=== PATIENT | female | born 1995 | race Caucasian/White ===

== ENCOUNTER 2018-08-04 21:03 | Emergency (ER) | payer OTHER | END 2018-08-04 22:42 | disposition home or self-care (01) | LOC: M ED 21:03 | DX: J06.9 Acute upper respiratory infection, unspecified (principal); Z88.6 Allergy status to analgesic agent; Z88.2 Allergy status to sulfonamides; Z91.018 Allergy to other foods | CPT/HCPCS: 87880 ==

== ENCOUNTER 2018-09-11 13:48 | Emergency (ER) | payer MEDICAID, SELFPAY, OTHER | END 2018-09-11 17:35 | disposition home or self-care (01) | LOC: M ED 13:48 | DX: J06.9 Acute upper respiratory infection, unspecified (principal); R07.9 Chest pain, unspecified; Z88.2 Allergy status to sulfonamides; Z91.018 Allergy to other foods; Z88.6 Allergy status to analgesic agent | CPT/HCPCS: 71046 ==

== ENCOUNTER 2020-10-29 18:20 | Emergency (ER) | payer MEDICAID ==
[~2020-10-29] VITALS: Ht 162.6 cm; Wt 54.5 kg
[~2020-10-29 18:20] MED LIST: MAGICMW SS; TESS100C PO; ZITHTAB PO
[2020-10-29 18:22] VITALS: BP 147/89
== END 2020-10-29 18:32 | disposition left against medical advice (07) ==
LOC: M ED 18:20
DX: Z53.29 Procedure and treatment not carried out because of patient's decision for other reasons (principal)

== ENCOUNTER 2021-08-29 03:23 | Emergency (ER) | payer MEDICAID, SELFPAY ==
[~2021-08-29] VITALS: Ht 157.5 cm; Wt 58.2 kg
--- OUTSIDE RECORDS SUMMARY | 2021-08-29 03:34 | CCD ---
Author Author [facility] Organization [facility] Address Unknown Phone Unavailable Support Name Relationship Address Phone UE Next Of Kin Unknown Unavailable ST Next Of Kin Unknown Unavailable KOBI LOUISE Next Of Kin [address] [place] [address] [place] [address] [facility] [address] [place] [address] Re-disclosure Warning The records that you are about to access may contain information from federally-assisted alcohol or drug abuse programs. If such information is present, then the following federally mandated warning applies: This information has been disclosed to you from records protected by federal confidentiality rules (42 CFR part 2). The federal rules prohibit you from making any further disclosure of this information unless further disclosure is expressly permitted by the written consent of the person to whom it pertains or as otherwise permitted by 42 CFR part 2. A general authorization for the release of medical or other information is NOT sufficient for this purpose. The Federal rules restrict any use of the information to criminally investigate or prosecute any alcohol or drug abuse patient.The records that you are about to access may contain highly sensitive health information, the redisclosure of which is protected by Article 27-F of the [facility] Public Health law. If you continue you may have access to information: Regarding HIV / AIDS; Provided by facilities licensed or operated by the [facility] Office of Mental Health; or Provided by the [facility] Office for People With Developmental Disabilities. If such information is present, then the following [facility] mandated warning applies: This information has been disclosed to you from confidential records which are protected by state law. State law prohibits you from making any further disclosure of this information without the specific written consent of the person to whom it pertains, or as otherwise permitted by law. Any unauthorized further disclosure in violation of state law may result in a fine or nursing home sentence or both. A general authorization for the release of medical or other information is NOT sufficient authorization for further disc losure. Family History Family Member Name Family Member Gender Family Member Status Date o f Status Description Data Source(s) Unknown Unknown Problem [facility] ([facility]) Medications No Information Insurance Providers Payer name Policy type / Coverage type Policy ID Covered green party ID Covered green party's relationship to husrt Policy [place] [id number] SP [id number] S EMEDNY [id number] SP [id number] MEDICAID [id number] SP [id number] SELF PAY O [id number] S [id number] SELF PAY ONLY [id number] SP [id number] [employer] [id number] SP [id number] [facility] Other [id number] Self [id number] Problems, Conditions, and Diagnoses No Information Surgeries/Procedures No Information Results No Information Social History No Information
[2021-08-29] MEDS ORDERED: ALPRAZolam 0.5 MG TAB PO ONE (05:00)
--- OUTSIDE RECORDS SUMMARY | 2021-08-29 05:46 | CCD ---
Author Author [facility] Organization [facility] Address Unknown Phone Unavailable Support Name Relationship Address Phone UE Next Of Kin Unknown Unavailable ST Next Of Kin Unknown Unavailable KOBI LOUISE Next Of Kin [address] [place] [address] [place] [address] [facility] [address] [place] [address] Re-disclosure Warning The records that you are [...] is protected by Article 27-F of the [facility] Public Health law. If you continue you may have access to information: Regarding HIV / AIDS; Provided by facilities licensed or operated by the [facility] Office of Mental Health; or Provided by the [facility] Office for People With Developmental Disabilities. If such information is present, then the following [facility] mandated warning applies: This information has [...] law may result in a fine or shelter sentence or both. A general authorization for [...] party ID Covered green party's relationship to hurst Policy [place] Plan Information [employer] [place] [id number] FA2 [id number] EMED[place] [id number] SP [id number] MEDICAID [id number] SP [id number] SELF PAY O [id number] S [id number] SELF PAY ONLY [id number] SP [id number] [employer] [id number] SP [id number] [facility] Other [id number] Self [id number] [place] [id number] SP [id number] S [id number] Problems, Conditions, and Diagnoses No Information Surgeries/Procedures No Information Results No Information Social History No Information
[2021-08-29 09:04] VITALS: BP 148/93
== END 2021-08-29 09:05 | disposition home or self-care (01) ==
LOC: M ED 03:23
DX: F43.21 Adjustment disorder with depressed mood (principal); Z88.2 Allergy status to sulfonamides; Z88.6 Allergy status to analgesic agent; Z79.899 Other long term (current) drug therapy

== ENCOUNTER 2021-09-03 13:59 | Inpatient (IN) | payer MEDICAID, SELFPAY ==
[~2021-09-03] VITALS: Ht 162.6 cm; Wt 57.3 kg
--- OUTSIDE RECORDS SUMMARY | 2021-09-03 14:04 | CCD ---
Author Author [facility] Address Unknown Phone Unavailable Support Name Relationship Address Phone UE Next Of Kin Unknown Unavailable ST Next Of Kin Unknown Unavailable KOBI LOUISE Next Of Kin [address] [place] [address] [place] [address] [address] [place] [address] Re-disclosure Warning The records that you are [...] is protected by Article 27-F of the [facility] Public Health law. If you continue you may have access to information: Regarding HIV / AIDS; Provided by facilities licensed or operated by the [facility] Office of Mental Health; or Provided by the [facility] Office for People With Developmental Disabilities. If such information is present, then the following [facility] mandated warning applies: This information [...] law may result in a fine or senior care sentence or both. A general authorization for [...] type / Coverage type Policy ID Covered alliance party ID Covered alliance party's relationship to hurst Policy [place] Plan [place] [employer] [place] [id number] FA2 [id number] [place] [id number] SP [id number] S EMEDNY [id number] SP [id number] MEDICAID [id number] SP [id number] SELF PAY O [id number] S [id number] [employer] [id number] SP [id number] [facility] Other [id number] Self [id number] SELF PAY ONLY [id number] SP [id number] Problems, Conditions, and Diagnoses No Information Surgeries/Procedures No Information Results No Information Social History No Information
[2021-09-03 15:07] LABS: HEMATOCRIT 44.1 % (36.0-47.0); HEMOGLOBIN 14.7 g/dl (12.0-15.5); MEAN CORPUSCULAR HEMOGLOBIN 29.1 pg (27.0-33.0); MEAN CORPUSCULAR HGB CONC 33.3 g/dl (32.0-36.5); MEAN CORPUSCULAR VOLUME 87.2 fl (80.0-96.0); PLATELET COUNT, AUTOMATED 250 10^3/uL (150-450); RED BLOOD COUNT 5.06 10^6/uL (4.00-5.40); WHITE BLOOD COUNT 9.5 10^3/uL (4.0-10.0)
--- OUTSIDE RECORDS SUMMARY | 2021-09-03 15:21 | CCD ---
Author Author [facility] Address Unknown Phone Unavailable Support Name Relationship Address Phone UE Next Of Kin Unknown Unavailable ST Next Of Kin Unknown Unavailable KOBI LOUISE Next Of Kin [address] [place] [address] [place] [address] [place] [address] Re-disclosure Warning The records that you are [...] is protected by Article 27-F of the [facility] Public Health law. If you continue you may have access to information: Regarding HIV / AIDS; Provided by facilities licensed or operated by the [facility] Office of Mental Health; or Provided by the [facility] Office for People With Developmental Disabilities. If such information is present, then the following [facility] mandated warning applies: This information has been [...] law may result in a fine or chcf sentence or both. A general authorization for [...] Policy [place] Plan Information [employer] [place] [id number] FA2 [id number] [place] [id number] SP [id number] S EMED[place] [id number] SP [id number] MEDICAID [id number] SP [id number] SELF PAY O [id number] S [id number] [employer] [id number] SP [id number] [facility] Other [id number] Self [id number] SELF PAY ONLY [id number] SP [id number] Problems, Conditions, and Diagnoses No Information Surgeries/Procedures No Information Results No Information Social History No Information
[2021-09-03 15:29] LABS: HCG, SERUM QUALITATIVE NEGATIVE (NEGATIVE)
[2021-09-03 15:35] LABS: ACETAMINOPHEN LEVEL < 2.0 UG/ML (10.0-30.0); ALBUMIN 4.1 GM/DL (3.2-5.2); ALT/SGPT 27 U/L (12-78); BILIRUBIN,DIRECT 0.1 MG/DL (0.0-0.2); BILIRUBIN,TOTAL 0.5 MG/DL (0.2-1.0); BLOOD UREA NITROGEN 15 MG/DL (7-18); CALCIUM LEVEL 9.1 MG/DL (8.5-10.1); CARBON DIOXIDE LEVEL 26 MEQ/L (21-32); CHLORIDE LEVEL 107 MEQ/L (98-107); CREATININE FOR GFR 0.74 MG/DL (0.55-1.30); ETHYL ALCOHOL (ETHANOL) 0.003 % (0.000-0.010); GLOMERULAR FILTRATION RATE > 60.0 (>60); GLUCOSE, FASTING 104 MG/DL (70-100); POTASSIUM SERUM 3.4 MEQ/L (3.5-5.1); SALICYLATE LEVEL < 1.7 MG/DL (5.0-30.0); SODIUM LEVEL 140 MEQ/L (136-145); THYROID STIMULATING HORMONE 0.904 uIU/ML (0.358-3.740); TOTAL PROTEIN 7.8 GM/DL (6.4-8.2)
--- NOTE | 2021-09-03 16:06 | REPVR ---
PROCEDURE INFORMATION: Exam: CT Head Without Contrast Exam date and time: 09/03/2021 3:41 PM Age: 26 years old Clinical indication: Altered mental status/memory loss; Additional info: AMS TECHNIQUE: Imaging protocol: Computed tomography of the head without contrast. Axial and coronal reformatted images were created and reviewed. Radiation optimization: All CT scans at this facility use at least one of these dose optimization techniques: automated exposure control; mA and/or kV adjustment per patient size (includes targeted exams where dose is matched to clinical indication); or iterative reconstruction. COMPARISON: No relevant prior studies available. FINDINGS: Brain: Subtle foci of white matter hypoattenuation, most notably in the left frontal lobe. No CT evidence of acute intracranial hemorrhage or acute territorial infarction. No significant mass effect or midline shift. Basal cisterns patent. Cerebral ventricles: Normal in size and configuration. Paranasal sinuses: Unremarkable. No fluid levels. Mastoid air cells: Grossly unremarkable. Bones/joints: No acute osseous abnormality. Soft tissues: Grossly unremarkable. IMPRESSION: Subtle foci of white matter hypoattenuation, most notably in the left frontal lobe. Differential diagnosis includes viral illness, Lyme disease, migraine headaches, vasculitis and demyelinating diseases, such as multiple sclerosis. Electronically signed by: Ajay Singh On 09/03/2021 16:06:27 PM
[2021-09-03] MEDS ORDERED: HOME MED LIST COMPLETE! XX SCH (16:15)
[2021-09-03] MEDS ORDERED: PROHANCE 279.3MG/ML 15ML VIAL As Ordered ONE (19:00)
--- NOTE | 2021-09-03 19:29 | REPVR ---
PROCEDURE INFORMATION: Exam: MR Head Without and With Contrast Exam date and time: 09/03/2021 7:05 PM Age: 26 years old Clinical indication: Altered mental status/memory loss and other: Abnormal CT results; Additional info: Abn CT, request of Dr. Duron TECHNIQUE: Imaging protocol: MR of the head without and with intravenous contrast. Contrast material: PROHANCE; Contrast volume: 12 ml; Contrast route: INTRAVENOUS (IV); COMPARISON: CT Head without contrast 09/03/2021 3:36 PM FINDINGS: Brain: Patchy areas of increased T2/FLAIR signal intensity in the left greater than right periventricular and subcortical white matter. No definite enhancement. No acute infarct. No hemorrhage. No edema. Cerebral ventricles: Normal. No ventriculomegaly. Bones/joints: Unremarkable. Paranasal sinuses: Normal as visualized. No acute sinusitis. Mastoid air cells: Normal as visualized. No mastoid effusion. Orbital cavity: Unremarkable. Soft tissues: Unremarkable. IMPRESSION: Patchy areas of increased T2/FLAIR signal intensity in the left greater than right periventricular and subcortical white matter. Findings are strongly suggestive of multiple sclerosis. No definite enhancement to suggest active demyelination. Electronically signed by: Ajay Singh On 09/03/2021 19:28:59 PM
[2021-09-04 00:04] LABS: AMPHETAMINES LEVEL URINE NEGATIVE (NEGATIVE); BARBITURATES URINE NEGATIVE (NEGATIVE); BENZODIAZEPINES URINE POSITIVE (NEGATIVE); CANNABINOIDS URINE NEGATIVE (NEGATIVE); COCAINE METABOLITE URINE NEGATIVE (NEGATIVE); METHADONE URINE NEGATIVE (NEGATIVE); OPIATES URINE NEGATIVE (NEGATIVE); PHENCYCLIDINE URINE NEGATIVE (NEGATIVE)
[2021-09-04 09:55] LABS: RSV AMPLIFICATION NEGATIVE (NEGATIVE)
[2021-09-04] MEDS ORDERED: ACETAMINOPHEN TAB 650MG DOSE (2X325MG) PO PRN (11:00)
[2021-09-04] MEDS ORDERED: MOM 30ML SUSPENSION UDC PO PRN (11:00)
[2021-09-04] MEDS ORDERED: MAALOX 30 ML SUSP *UDC PO PRN (11:00)
--- OUTSIDE RECORDS SUMMARY | 2021-09-04 11:18 | CCD ---
Author Author [facility] Address Unknown Phone Unavailable Support Name Relationship Address Phone UE Next Of Kin Unknown Unavailable ST Next Of Kin Unknown Unavailable KOBI LOUISE Next [place] [address] [place] [address] [place] [address] [place] [address] Re-disclosure Warning The records that you are [...] is protected by Article 27-F of the [facility] Public Health law. If you continue you may have access to information: Regarding HIV / AIDS; Provided by facilities licensed or operated by the [facility] Office of Mental Health; or Provided by the [facility] Office for People With Developmental Disabilities. If such information is present, then the following [facility] mandated warning applies: This information has been [...] law may result in a fine or assisted sentence or both. A general authorization for [...] Policy [place] Plan Information [employer] [place] [id number] FA2 [id number] [place] [id number] SP [id number] S EMEDNY [id number] SP [id number] MEDICAID [id number] SP [id number] SELF PAY O [id number] S [id number] [employer] [id number] SP [id number] [facility] Other [id number] Self [id number] SELF PAY ONLY [id number] SP [id number] Problems, Conditions, and Diagnoses No Information Surgeries/Procedures No Information Results No Information Social History No Information
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
[2021-09-04] MEDS: OLANZapine ORAL DISINTEGRATING TAB 5MG PO PRN (21:35)
[2021-09-04] MEDS: traZODone 50 MG TAB PO PRN (21:35)
[2021-09-05 07:03] VITALS: BP 129/89
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
[2021-09-05] MEDS: OLANZapine 5 MG TAB PO SCH ×2 (14:37→21:56)
[2021-09-05] MEDS: ESCITALOPRAM OXALATE 5MG TABLET (LEXAPRO) PO SCH (14:37)
--- NOTE | 2021-09-05 15:08 | HPEPDOC ---
[facility] Medical History & Physical Date of Admission Sep 04, 2021 Date of Service: Sep 05, 2021 History and Physical Chief complaint: Who presented to the ER with psychosis History of present illness: Patient is a 26-year-old female with no significant past medical history who presented to the ER after she was found wandering without any shoes in the rain patient was admitted to the inpatient mental health unit under the care of psychiatry. Hospitalist service was consulted for medical screening evaluation. Of note, patient was COVID19 positive in the ER, however was normal hypoxic. Patient was seen and examined at the bedside. Currently, she denies any headache, nausea, vomiting, chest pain, shortness breath, palpitations, abdominal pain, constipation or urinary discomfort. Patient did report some diarrhea this morning. Past Medical History: Patient denies any prior medical history Past Surgical History: Patient denies any prior surgical history Allergies: See below Medications: See below Family History: - Patient reports that her mothers side has a history of addiction and mental illness Social History: - Denies the use of alcohol, tobacco or illicit drugs - Denies recent travel or sick contacts Review of Systems: 10 point review of systems complete, all negative otherwise stated in HPI Physical exam: - Vitals: BP [129/89], HR [106], RR [18], Sat [98%RA], Temp [98.0F] - General: Lying in bed, No acute distress, Speaking in full sentences, AAOx3 - HEENT: NC, AT, EOMI - CVS: RRR, +S1S2 - Lungs: Fair air entry bilaterally, No appreciable wheezing / rales / rhonchi - Abdomen: Soft, Non-distended, Non-tender - ExtremitiesNo lower extremity edema, No calf tenderness - Neuro: No focal motor or sensory deficit - Skin: No visible rashes Labs: See below Imaging: CT head 09/03: Subtle foci of white matter hypoattenuation, most notably in the left frontal lobe. Differential diagnosis includes viral illness, Lyme disease, migraine headaches, vasculitis and demyelinating diseases, such as multiple sclerosis. MRI brain 09/03: Patchy areas of increased T2/FLAIR signal intensity in the left greater than right periventricular and subcortical white matter. Findings are strongly suggestive of multiple sclerosis. No definite enhancement to suggest active demyelination. EKG: See below Assessment and Plan: Psychosis - Patient has been admitted to the inpatient mental health unit under the care of psychiatry - Currently being managed by psychiatry Recent imaging with suggestion of multiple sclerosis - Imaging does not reveal any active demyelination - Will have outpatient follow-up with neurology on discharge COVID19 - Patient is saturating well on room air - Will add Mucinex / Incentive spirometry No significant past medical history DVT prophylaxis - Will continue with early insulation Female label stitcher was present for the duration of this history and physical examination Thank you for this consultation. Hospitalist service will now sign off; please reconsult as needed Vital Signs Vital Signs Date Time Temp Pulse Resp B/P (MAP) Pulse Ox O2 Delivery O2 Flow Rate FiO2 09/05/21 07:03 98.0 106 18 129/89 (102) 98 Room Air Home Medications No Active Prescriptions or Reported Meds Allergies Coded Allergies: Sulfa (Sulfonamide Antibiotics) (Verified Allergy, Intermediate, HIVES, 08/29/21) Grape (Verified Allergy, Unknown, 07/07/05) aspirin (Verified Adverse Reaction, Intermediate, NSAID GIVEN AT - DEVELOPED BLOODY NOSE PER MOTHER, 08/29/21) GRADY ESPINOZA MD Sep 05, 2021 15:08
[2021-09-05] MEDS ORDERED: POTASSIUM CHLORIDE 10MEQ SR TABLET PO ONE (15:15)
[2021-09-05 17:00] VITALS: BP 133/83
[2021-09-05 19:02] VITALS: BP 133/83
[2021-09-05] MEDS: guaiFENesin ER 600 MG TAB PO SCH (21:56)
[2021-09-06 07:07] VITALS: BP 101/61
[2021-09-06] MEDS: OLANZapine 5 MG TAB PO SCH ×2 (09:44→20:40)
[2021-09-06] MEDS: guaiFENesin ER 600 MG TAB PO SCH ×2 (09:44→20:40)
[2021-09-06] MEDS: ESCITALOPRAM OXALATE 5MG TABLET (LEXAPRO) PO SCH (09:44)
[2021-09-06 17:43] VITALS: BP 133/94
[2021-09-07 06:20] VITALS: BP 131/91
[2021-09-07] MEDS: guaiFENesin ER 600 MG TAB PO SCH ×2 (10:35→20:42)
[2021-09-07] MEDS: OLANZapine 5 MG TAB PO SCH ×2 (10:36→20:39)
[2021-09-07] MEDS: ESCITALOPRAM OXALATE 5MG TABLET (LEXAPRO) PO SCH (10:36)
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
--- NOTE | 2021-09-07 17:51 | MHIPN ---
[facility] PROGRESS NOTE DATE: 09/06/2021 The patient states, "I had a nervous breakdown because of my mom." She continues to be very focused on the fact that she says her mother has been mistreating her. She states, "They don't want me to tell anyone." She kept saying that her mother was telling her all these things that were upsetting to her, but she is very vague. She tells me that she is not sure that she wants to say anything about these things to others. She says she is not having suicidal thoughts but "I feel like I don't want to be on the earth anymore." She says that she has these thoughts often. MENTAL STATUS EXAMINATION: This patient is alert and oriented times three. Eye contact fair. Psychomotor activity is decreased. She tends to speak almost in a monotone. There is no formal thought disorder noted. Mood is "not good." Affect is flat. She seems to have some delusional thoughts about her mother possibly somehow, she thinks that her mother has done something with her social security number. She has some vague suicidal thoughts. Denies homicidal thoughts. Concentration is fair. Memory grossly intact. Insight and judgment are poor. DIAGNOSES: Unspecified psychotic disorder, rule out bipolar disorder and generalized anxiety disorder. TREATMENT PLAN: At this point, we will continue to monitor the patient for what appears to be some paranoid delusions, disorganized thoughts, and suicidal thoughts. The patient had been found walking in the rain without shoes, and her insight and judgment are poor. As far as medication goes, she has been placed on Zyprexa 5 mg twice a day, Lexapro 5 mg, trazodone 50 mg at bedtime as needed for insomnia, and so I will continue these medications, and we will continue to monitor her for ongoing confusion and delusions and vague suicidal thoughts.
[2021-09-07 18:00] VITALS: BP_SYST 102; BP_SYST 127; BP_DIAS 58; BP_DIAS 78
[2021-09-08 06:18] VITALS: BP 111/59
[2021-09-08] MEDS: ESCITALOPRAM OXALATE 5MG TABLET (LEXAPRO) PO SCH (09:53)
[2021-09-08] MEDS: OLANZapine 5 MG TAB PO SCH ×2 (09:53→22:17)
[2021-09-08] MEDS: guaiFENesin ER 600 MG TAB PO SCH ×2 (09:53→22:16)
[2021-09-08 17:33] VITALS: BP 137/91
[2021-09-08] MEDS: traZODone 50 MG TAB PO PRN (23:25)
[2021-09-09 06:25] VITALS: BP 133/90
[2021-09-09] MEDS: ESCITALOPRAM OXALATE 5MG TABLET (LEXAPRO) PO SCH (09:54)
[2021-09-09] MEDS: OLANZapine 5 MG TAB PO SCH ×2 (09:54→21:42)
[2021-09-09] MEDS: guaiFENesin ER 600 MG TAB PO SCH ×2 (09:55→21:42)
[2021-09-09 17:10] VITALS: BP 130/88
[2021-09-09 18:32] VITALS: BP 130/80
[2021-09-09] MEDS: traZODone 50 MG TAB PO PRN (21:46)
[2021-09-10 06:44] VITALS: BP 119/81
[2021-09-10] MEDS: guaiFENesin ER 600 MG TAB PO SCH ×2 (09:47→20:31)
[2021-09-10] MEDS: ESCITALOPRAM OXALATE 5MG TABLET (LEXAPRO) PO SCH (09:47)
[2021-09-10] MEDS: OLANZapine 5 MG TAB PO SCH ×2 (09:47→20:31)
[2021-09-10 16:12] VITALS: BP 116/74
[2021-09-10 18:11] VITALS: BP 116/74
[2021-09-11 06:20] VITALS: BP 146/93
[2021-09-11] MEDS: OLANZapine 5 MG TAB PO SCH ×2 (09:29→21:44)
[2021-09-11] MEDS: ESCITALOPRAM OXALATE 5MG TABLET (LEXAPRO) PO SCH (09:29)
[2021-09-11] MEDS: guaiFENesin ER 600 MG TAB PO SCH ×2 (09:29→21:44)
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
[2021-09-11 17:51] VITALS: BP 138/86
[2021-09-12 06:18] VITALS: BP 127/80
[2021-09-12] MEDS: ESCITALOPRAM OXALATE 10 MG TAB (LEXAPRO) PO SCH (09:57)
[2021-09-12] MEDS: guaiFENesin ER 600 MG TAB PO SCH ×2 (09:57→22:07)
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
[2021-09-12] MEDS: OLANZapine ORAL DISINTEGRATING TAB 5MG PO PRN (12:25)
[2021-09-12 16:21] VITALS: BP 127/79
[2021-09-12] MEDS: OLANZapine 5 MG TAB PO SCH (22:07)
[2021-09-12] MEDS: traZODone 50 MG TAB PO PRN (22:10)
[2021-09-13 06:27] VITALS: BP 138/73
[2021-09-13] MEDS ORDERED: OLAN1TAB16 PO (07:50)
[2021-09-13] MEDS ORDERED: MUCI600T31 PO (07:50)
[2021-09-13] MEDS ORDERED: LEXA1TAB PO (07:50)
--- NOTE | 2021-09-13 08:53 | MHIPN ---
[facility] PSYCHIATRIC PROGRESS NOTE DATE: 09/08/2021 HISTORY OF PRESENT ILLNESS: The patient today states that she is doing "better." She says she slept better also. She does still complain of feeling anxious. MENTAL STATUS EXAM: This patient is alert and oriented times 3. She is pleasant and cooperative ENDED INCOMPLETE/verified/ml
[2021-09-13] MEDS: guaiFENesin ER 600 MG TAB PO SCH (09:14)
[2021-09-13] MEDS: ESCITALOPRAM OXALATE 10 MG TAB (LEXAPRO) PO SCH (09:14)
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
== END 2021-09-13 12:55 | disposition home or self-care (01) | DRG 751 ==
LOC: M ED 13:59 → M ED INP 09-04 10:59 → M PSY 09-04 15:58
PROVIDERS: ADMIT Student in an Organized Health Care Education/Training Program; ATTEND Psychiatry & Neurology Psychiatry
DX: F29 Unspecified psychosis not due to a substance or known physiological condition (principal); F41.1 Generalized anxiety disorder; Z88.2 Allergy status to sulfonamides; Z88.6 Allergy status to analgesic agent; Z91.018 Allergy to other foods; G47.00 Insomnia, unspecified; Z63.4 Disappearance and death of family member

== ENCOUNTER → 2022-02-15 | Outpatient (CLI) | payer OTHER ==
[~2022-02-15] MED LIST changes: +LEXA1TAB PO; +MUCI600T31 PO; +OLAN1TAB16 PO
[2022-02-15 10:05] LABS: APPEARANCE, CSF CLEAR (CLEAR); COLOR, CSF COLORLESS (COLORLESS); CSF TUBE# CELL CNT TUBE 1
[2022-02-15 10:10] LABS: CSF TUBE# GLU TUBE 1; CSF TUBE# TP TUBE 1; GLUCOSE CSF 54 MG/DL (40-75); TOTAL PROTEIN,CSF 31 MG/DL (15-45)
[2022-02-15 10:50] VITALS: BP 109/68
== END ==
LOC: M IRPRO 07:52
PROVIDERS: ATTEND Psychiatry & Neurology Neurology
DX: G37.9 Demyelinating disease of central nervous system, unspecified (principal); R20.2 Paresthesia of skin

== ENCOUNTER → 2022-08-14 | Outpatient (REF) | payer OTHER | LOC: M LAB REF 17:15 | PROVIDERS: ATTEND Pediatrics | DX: Z12.4 Encounter for screening for malignant neoplasm of cervix (principal) ==

== ENCOUNTER → 2022-10-08 | Outpatient (REF) | payer OTHER ==
[2022-10-08 16:59] LABS: BASO % 0.4 % (0.0-1.0); EOS # 0.2 10^3/uL (0.0-0.5); EOS % 1.6 % (0.0-3.0); HEMOGLOBIN 14.1 g/dl (12.0-15.5); LYMPH # 3.1 10^3/uL (1.5-5.0); LYMPH % 30.4 % (24.0-44.0); MEAN CORPUSCULAR HEMOGLOBIN 28.7 pg (27.0-33.0); MEAN CORPUSCULAR VOLUME 89.6 fl (80.0-96.0); MONO # 1.1 10^3/uL (0.0-0.8); MONO % 11.2 % (2.0-8.0); NEUTROPHILS # 5.7 10^3/uL (1.5-8.5); NEUTROPHILS % 56.1 % (36.0-66.0); PLATELET COUNT, AUTOMATED 361 10^3/uL (150-450); RED BLOOD COUNT 4.91 10^6/uL (4.00-5.40); WHITE BLOOD COUNT 10.1 10^3/uL (4.0-10.0)
[2022-10-08 17:35] LABS: HEMOGLOBIN A1c 5.1 % (4.0-6.0)
[2022-10-08 17:47] LABS: THYROID STIMULATING HORMONE 1.896 uIU/ML (0.55-4.78)
[2022-10-08 17:48] LABS: ALBUMIN 3.8 G/DL (3.2-5.2); ALKALINE PHOSPHATASE 145 U/L (46-116); ALT/SGPT 46 U/L (7.0-40); AST/SGOT 22 U/L (<34); BILIRUBIN,TOTAL 0.3 MG/DL (0.3-1.2); BLOOD UREA NITROGEN 14 MG/DL (9-23); CALCIUM LEVEL 9.3 MG/DL (8.5-10.1); CARBON DIOXIDE LEVEL 28 MMOL/L (20-31); CHLORIDE LEVEL 101 MMOL/L (98-107); CREATININE FOR GFR 0.65 MG/DL (0.55-1.30); GLOMERULAR FILTRATION RATE > 60.0 (>60); GLUCOSE, FASTING 98 MG/DL (60-100); POTASSIUM SERUM 3.9 MMOL/L (3.5-5.1); SODIUM LEVEL 138 MMOL/L (136-145); TOTAL PROTEIN 7.4 G/DL (5.7-8.2)
== END ==
LOC: M LAB REF 16:22
PROVIDERS: ATTEND Pediatrics
DX: Z51.81 Encounter for therapeutic drug level monitoring (principal)